=== PATIENT | female | born 1995 | race Caucasian/White ===

== ENCOUNTER 2022-09-07 09:42 | Emergency (ER) | payer MEDICAID, SELFPAY ==
[2022-09-07 09:51] VITALS: BP 129/83; PULSE 109; RESP 18; TEMP 36.8; O2SAT 98
--- NOTE | 2022-09-07 10:07 | W.ED.GENAD ---
Discharge Plan Disposition Patient Disposition: Home Condition: Stable Discharge Details Clinical Impression: Prescription refill Primary Care Provider: None,None ED Provider: Margarita Jefferson Home Meds and New Rx's Prescriptions: New escitalopram oxalate 20 mg tablet 20 mg PO DAILY Qty: 30 0RF Rx Instructions: Take one tablet daily No Action escitalopram oxalate 20 mg Tablet 20 mg PO DAILY Discharge Instructions Instructions: Escitalopram (By mouth) Additional Instructions: A prescription was sent to the pharmacy on file here [facility] in [facility]. At this time you have declined assistance with establishing PCP in this area. You may take clotrimazole or Lotrimin which is an idko-ghd-rmklrza antifungal as needed as directed for your mouth lesions. Follow up with primary care provider as needed. Return to ED sooner if any worsening or concerns. Increase oral fluids. Discharge Data Discharge Date/Time-TO BE ENTERED AT DEPARTURE: 09/07/22 10:21 Medical Decision Making 19-year-old female here for prescription refill of escitalopram. She reports she does not have a PCP here in the area she is visiting from [place]. She ran out of her medication yesterday. Prescription refilled. Prescription was sent to the pharmacy on file. HPI General Mode of arrival: ambulatory. Date/Time Provider Initiated Documentation: 09/07/22 09:58. Limitations to Documentation: no limitations. Information obtained by: patient, RN notes reviewed and old records reviewed. HPI Narrative: 27-year-old female presents to the ER with request for prescription refill. Patient is traveling from [place] staying with her parents and does not have a local PCP here she ran out of escitalopram 20 mg yesterday. She reports she has been on this medication for 8 years. I did offer assistance with establishing PCP in this area she declined at this time. Related Data Home Medications Medication Instructions Recorded Confirmed escitalopram oxalate 20 mg tablet 20 mg PO DAILY 09/07/22 09/07/22 escitalopram oxalate 20 mg tablet 20 mg PO DAILY #30 tabs 09/07/22 Previous Rx's Medication Instructions Recorded escitalopram oxalate 20 mg tablet 20 mg PO DAILY #30 tabs 09/07/22 Allergies Allergy/AdvReac Type Severity Reaction Status Date / Time codeine AdvReac Visual Unverified 09/07/22 09:57 Disturbances General Stated Complaint: RX Refill JACKIE: 4 Review of Systems All systems reviewed & are unremarkable except as noted in HPI and below PFSH All Active Problems (Updated 09/07/22 @ 10:14 by Margarita Jefferson NP) Prescription refill (Acute) Social History Smoking/Tobacco Use Status: Current every day Tobacco Type: e-cigarettes Smoking risk assessment performed?: Yes Alcohol Intake: never Drug use: Never Substance use type: does not use Do you feel safe at home: Yes Do you feel safe in your relationship?: Yes Exam Narrative Exam Narrative: Constitutional: Alert and oriented x3. Appears stated age. Normal body habitus. Chest: RRR, Normal S1, S2, distal pulses intact. Resp: Lungs clear to auscultation bilaterally, no wheezes, rales, or rhonchi. Musculoskeletal: Normal gait Skin: No suspicious rashes or lesions. Capillary refill less than 2 sec. Neurologic: Cranial nerves II-XII intact. Alert and oriented x 3. Motor: No deficits noted. Course Vital Signs Vital signs: Vital Signs Temperature 36.8 C 09/07/22 09:51 Pulse 109 H 09/07/22 09:51 Respiratory Rate 18 09/07/22 09:51 Blood Pressure 129/83 09/07/22 09:51 Pulse Oximetry 98 09/07/22 09:51 Temperature 36.8 C 09/07/22 09:51 Temperature Source Temporal Artery Scan 09/07/22 09:51 Pulse 109 H 09/07/22 09:51 Respiratory Rate 18 09/07/22 09:51 Respiratory Effort Non-Labored 09/07/22 09:57 Blood Pressure 129/83 09/07/22 09:51 Blood Pressure Position Sitting 09/07/22 09:51 Pulse Oximetry 98 09/07/22 09:51 Oxygen Delivery Method Room Air 09/07/22 09:51 Oxygen Flow Rate 0 09/07/22 09:51
== END 2022-09-07 10:21 | disposition home or self-care (01) ==
PROVIDERS: Emergency Provider Registered Nurse Emergency
DX: Z76.0 Encounter for issue of repeat prescription (principal)
CPT/HCPCS: 99283

== ENCOUNTER 2022-11-01 15:42 | Emergency (ER) | payer MEDICAID, SELFPAY ==
[2022-11-01 15:51] VITALS: BP 118/65; PULSE 82; RESP 18; TEMP 35.7; O2SAT 96
--- NOTE | 2022-11-01 16:37 | ED.GENADUL_ITS ---
Discharge Plan Disposition Patient Disposition: Home Condition: Good Discharge Details Clinical Impression: Medication refill, Angular cheilitis Primary Care Provider: None,None ED Provider: Deedee Zhang Home Meds and New Rx's Prescriptions: New escitalopram oxalate 20 mg tablet 20 mg PO DAILY Qty: 30 0RF hydrocortisone butyrate 0.1 % cream 1 applic topical BID Qty: 15 0RF Continued escitalopram oxalate 20 mg Tablet 20 mg PO DAILY escitalopram oxalate 20 mg tablet 20 mg PO DAILY Qty: 30 0RF Rx Instructions: Take one tablet daily Discharge Instructions Additional Instructions: Refill of your escitalopram has been sent to your pharmacy. Please take as directed. Please apply the hydrocortisone butyrate to the areas of the side of your lips twice daily for the next 1-2 weeks. Please continue with safe sex practices, discuss chronic care of your STI with your PCP. Care management will call to help arrange local PCP follow up. Please also call [facility] to discuss insurance. If you develop fevers/chills, pain or other new/worsening emergent issues please seek care urgently once again. Discharge Data Discharge Date/Time-TO BE ENTERED AT DEPARTURE: 11/01/22 16:59 Medical Decision Making Sarahi is a 27 year old female presenting today requesting refill of escitalopram, prescription for chronic vaginal herpes so that she may begin being sexually active and treatment for chronic angular cheilitis. Denies active herpes flare. New from [place] and does not have local insurance or PCP. Will be staying here. Has been given information for [employer] insurance. She has not yet f/u with start PCP. She states that her depression has been very well controlled, no thoughts of self harm. Has chronic angular chelieits for several years, has done well with topical steroids in donny past. Is currently using a scented lotion to assist as well as antifungal with no change. On exam, patient appears nontoxic. She has small areas of angular cheilitis bilaterally. No evicence of overlying cellulitis. No intra orala lesions. Appears to have good personal insight, well controlled depression without SI. Have asked care management to ensure patient gets local PCP and conctinued care. Will treat anagular cheilitis, will refill medications. Return precautions discussed. All of her questions and concerns were addressed, she is in agreement with this plan. HPI General Date/Time Provider Initiated Documentation: 11/01/22 15:43 . Limitations to Documentation: no limitations . Information obtained by: patient and RN notes reviewed . History of Present Illness 27 year old F presents to the emergency department with the chief complaint of medication refill request, angular chelitis, Patient started experiencing this unknown (has had depression for several years, well controlled with medication) Patient did receive the following treatments prior to arrival, other (escitalopram) Related Data Home Medications Medication Instructions Recorded Confirmed escitalopram oxalate 20 mg tablet 20 mg PO DAILY 09/07/22 11/01/22 escitalopram oxalate 20 mg tablet 20 mg PO DAILY #30 tabs 09/07/22 escitalopram oxalate 20 mg tablet 20 mg PO DAILY #30 tabs 11/01/22 hydrocortisone butyrate 0.1 % 1 applic topical BID #15 grams 11/01/22 topical cream Previous Rx's Medication Instructions Recorded escitalopram oxalate 20 mg tablet 20 mg PO DAILY #30 tabs 09/07/22 escitalopram oxalate 20 mg tablet 20 mg PO DAILY #30 tabs 11/01/22 hydrocortisone butyrate 0.1 % 1 applic topical BID #15 grams 11/01/22 topical cream Allergies Allergy/AdvReac Type Severity Reaction Status Date / Time codeine AdvReac Visual Unverified 11/01/22 15:55 Disturbances General Stated Complaint: RX Refill JACKIE: 4 Review of Systems Constitutional Constitutional: Reports as per HPI, Denies chills and Denies fever(s) Cardiovascular Cardiovascular: Reports as per HPI, Denies chest pain and Denies dyspnea Respiratory Respiratory: Reports as per HPI, Denies cough and Denies dyspnea Psychiatric Psychiatric: Reports as per HPI (feels that depression is well conrolled), Denies homicidal ideation and Denies suicidal ideation PFSH All Active Problems (Updated 11/01/22 @ 16:41 by CYN Leo) Medication refill (Acute) Angular cheilitis (Acute) Social History Smoking/Tobacco Use Status: Current every day Tobacco Type: e-cigarettes Smoking risk assessment performed?: Yes Alcohol Intake: never Drug use: Never Substance use type: does not use Do you feel safe at home: Yes Do you feel safe in your relationship?: Yes Exam Const General: cooperative, healthy appearing, comfortable and no acute distress Nutritional Appearance: average body habitus and well nourished Orientation: alert and awake HENMT Face images: 1. 2. small erythematous areas with cracking. Moist area. No pain with palpation. No intra oral lesions. No surrounding erythema, no pain with palpation, no discharrge. Resp Effort & Inspection: normal respiratory effort, able to speak in complete sentences and no respiratory distress Cardio Rate: regular rate Rhythm: regular rhythm Skin General skin exam: no rashes or lesions noted Neuro General: patient alert and patient awake Cognition: normal cognition Speech: speech normal Gait: normal gait Psych Appearance: grossly normal and well kempt Mental Status: mental status grossly normal Speech and Movement: speech and movement normal Course Vital Signs Vital signs: Vital Signs Temperature 35.7 C L 11/01/22 15:51 Pulse 82 11/01/22 15:51 Respiratory Rate 18 11/01/22 15:51 Blood Pressure 118/65 11/01/22 15:51 Pulse Oximetry 96 11/01/22 15:51 Temperature 35.7 C L 11/01/22 15:51 Temperature Source Tympanic 11/01/22 15:51 Pulse 82 11/01/22 15:51 Respiratory Rate 18 11/01/22 15:51 Respiratory Effort Normal, Non-Labored 11/01/22 15:55 Blood Pressure 118/65 11/01/22 15:51 Blood Pressure Position Sitting 11/01/22 15:51 Pulse Oximetry 96 11/01/22 15:51 Oxygen Delivery Method Room Air 11/01/22 15:51 Oxygen Flow Rate 0 11/01/22 15:51
--- NOTE | 2022-11-02 12:08 | PDOC.ERCMACT ---
- If Service Date Differs Date of service: 11/02/22 Time of Service: 12:08 Care Management Activity Note Nelda is seen in the ED for a refill of her medication. At the request of ED provider, SURYA coordinates a rreferral to Gisela Estrada aprn, of [facility], tele-doc, to assist Nelda in obtaining a follow up appointment and in establishing care with a PCP. A referral is also made to [facility] for assistance with obtaining health insurance.
== END 2022-11-01 16:59 | disposition home or self-care (01) ==
PROVIDERS: Emergency Provider Physician Assistant
DX: K13.0 Diseases of lips (principal); Z76.0 Encounter for issue of repeat prescription
CPT/HCPCS: 99283

== ENCOUNTER 2023-01-05 10:54 | Outpatient (REF) | payer MEDICAID, SELFPAY ==
--- NOTE | 2023-01-05 09:30 | PAPFT_PTH ---
PATIENT: Nelda Rousseau LOC: [facility]#:[id number] AGE/SX: 27/F ROOM: RE01/05/[address]: Mirtha Cuevas : 1995 BED: DIS: 01/05/2023 SPEC #: [id number] RECD: 01/05/23 17:54 STATUS: ROEL FUENTES #: [id number] LITO: 01/05/23 09:[address]: Mirtha Cuevas DEPT: [facility] Cytology RECD BY: Crystal Corbett ENTERED: 01/05/23 17:54 SP TYPE: PAPFT NEIL DR: None Tissues: 1 - CX/ENDOCX FOR PAP SMEARS Procedures: PAP THIN PREP/UVM Screening HPV DNA PROBE Comments: [id number] (CHLAMYDIA/GC)
[2023-01-05 14:41] LABS: HCT 51.1 % (36.0-46.0); HGB 16.9 g/dL (11.2-15.7); MCH 29.9 pg (27.0-33.0); MCHC 33.1 % (32.0-36.0); MCV 90 fL (80-95); MPV 10.1 fL (8.0-11.0); Platelet Count 262 10^3/uL (130-400); RBC 5.65 10^6/uL (3.93-5.22); RDW 13.3 % (11.7-14.6); WBC 6.45 10^3/uL (4.4-10.8)
[2023-01-05 15:41] LABS: ALT 52 U/L (14-59); AST 23 U/L (15-37); Albumin 4.5 g/dL (3.4-5.0); Alkaline Phosphatase 82 U/L (46-116); Anion Gap 8.4 mmol/L (3-11); BUN 17 mg/dL (7-18); Bilirubin, Total 0.3 mg/dL (0.2-1.0); CO2 28.6 mmol/L (21.0-32.0); CREATININE 0.8 mg/dL (0.55-1.02); Calcium 9.8 mg/dL (8.5-10.1); Calculated LDL 93 mg/dL (<100); Chloride 105 mmol/L (98-107); Cholesterol 183 mg/dL (<200); Estimated GFR 102.86 (mL/min/1.73m2); Glucose 88 mg/dL (74-106); HDL Cholesterol 83 mg/dL (40-60); Magnesium 2.2 mg/dL (1.8-2.4); Potassium 4.3 mmol/L (3.5-5.1); Sodium 142 mmol/L (136-145); TSH (W/Ref FT4) 2.45 uIU/mL (0.36-3.74); Total Protein 7.8 g/dL (6.4-8.2); Triglyceride 39 mg/dL (<150)
[2023-01-05 16:13] LABS: Vitamin D 25 Total 33.8 ng/mL (30-100)
[2023-01-05 22:35] LABS: Estradiol 26 pg/mL (See Note)
[2023-01-05 23:13] LABS: LH 7.5 mIU/mL (See Note)
[2023-01-05 23:15] LABS: FSH 9.2 mIU/mL (See Note)
[2023-01-06 10:42] LABS: Hepatitis C Ab w Rflx HCV PCR Negative (Negative)
[2023-01-06 10:48] LABS: HIV-1/2 Ag & Ab Screen Negative (Negative)
[2023-01-13 12:41] LABS: Testosterone, Free 1.04 ng/dL (<0.13-1.06); Testosterone, Total 21 ng/dL (8-60)
[2023-01-13 13:45] LABS: Chlamydia Result Negative (Negative); GC Result Negative (Negative)
== END 2023-01-05 10:55 | disposition home or self-care (01) ==
LOC: NCHCN 10:54
PROVIDERS: Visit Provider Family Medicine
DX: Z12.4 Encounter for screening for malignant neoplasm of cervix; Z86.59 Personal history of other mental and behavioral disorders; R53.83 Other fatigue; Z11.51 Encounter for screening for human papillomavirus (HPV); B97.7 Papillomavirus as the cause of diseases classified elsewhere
CPT/HCPCS: 80053; 80061; 82306; 84402; 84403; 85027; 86803; 87389; 87491; 87591; 88142; 82670; 83001; 83002; 83735; 84443; 87624

== ENCOUNTER 2023-02-16 14:27 | Outpatient (REF) | payer MEDICAID, SELFPAY ==
[2023-02-16 15:13] LABS: HCT 43.5 % (36.0-46.0); HGB 14.3 g/dL (11.2-15.7); MCH 30.2 pg (27.0-33.0); MCHC 32.9 % (32.0-36.0); MCV 92 fL (80-95); Platelet Count 315 10^3/uL (130-400); RBC 4.73 10^6/uL (3.93-5.22); RDW 12.9 % (11.7-14.6); RDW-SD 43.9 fL; WBC 11.28 10^3/uL (4.4-10.8)
== END 2023-02-16 14:28 | disposition home or self-care (01) ==
LOC: NCHCN 14:27
PROVIDERS: Visit Provider Family Medicine
DX: D75.1 Secondary polycythemia (principal); R53.83 Other fatigue
CPT/HCPCS: 85027

== ENCOUNTER 2023-02-17 17:21 | Outpatient (REF) | payer MEDICAID, SELFPAY ==
--- NOTE | 2023-02-17 15:20 | ENDO_PTH ---
PATIENT: Nelda Rousseau LOC: N U#:[id number] AGE/SX: 27/F ROOM: RE02/17/[address]: Eula Lay DO : 1995 BED: DIS: 02/17/2023 SPEC #: [id number] RECD: 02/17/23 17:26 STATUS: ROEL REQ #: [id number] LITO: 02/17/23 15:[address]: Eula Lay DEPT: Surgical Specimen RECD BY: Crystal Corbett ENTERED: 02/17/23 17:27 SP TYPE: Endo OTHR DR: Unknown,Unknown Tissues: 1 - ENDOCERVICAL BX/CURRETTE Procedures: GROSS AND MICRO LEVEL 4 Comments: [id number]
[2023-02-19 14:13] LABS: Chlamydia Result Negative (Negative); GC Result Negative (Negative)
== END 2023-02-17 17:22 | disposition home or self-care (01) ==
LOC: LBN 17:21
PROVIDERS: Visit Provider Obstetrics & Gynecology
DX: N89.8 Other specified noninflammatory disorders of vagina; Z11.3 Encounter for screening for infections with a predominantly sexual mode of transmission; N88.8 Other specified noninflammatory disorders of cervix uteri; R87.610 Atypical squamous cells of undetermined significance on cytologic smear of cervix (ASC-US); R87.810 Cervical high risk human papillomavirus (HPV) DNA test positive
CPT/HCPCS: 87491; 87591; 88305; 87480; 87510; 87660

== ENCOUNTER 2023-03-02 13:21 | Outpatient (REF) | payer MEDICAID, SELFPAY | END 2023-03-02 13:22 | disposition home or self-care (01) | LOC: LBN 13:21 | PROVIDERS: Visit Provider Obstetrics & Gynecology | DX: R30.0 Dysuria (principal) | CPT/HCPCS: 87086 ==

== ENCOUNTER 2023-04-14 14:44 | Outpatient (REF) | payer MEDICAID, SELFPAY ==
[2023-04-15 13:19] LABS: Chlamydia Result Negative (Negative); GC Result Negative (Negative)
== END 2023-04-14 14:45 | disposition home or self-care (01) ==
LOC: NCHCN 14:44
PROVIDERS: Visit Provider Family Medicine
DX: R87.610 Atypical squamous cells of undetermined significance on cytologic smear of cervix (ASC-US) (principal)
CPT/HCPCS: 87491; 87591

== ENCOUNTER 2023-09-20 15:01 | Emergency (ER) | payer MEDICAID, SELFPAY ==
[2023-09-20 15:03] VITALS: BP 117/67; PULSE 90; RESP 18; TEMP 36.3; O2SAT 99
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
== END 2023-09-20 15:45 | disposition home or self-care (01) ==
PROVIDERS: Emergency Provider Emergency Medicine
DX: S06.0XAA Concussion with loss of consciousness status unknown, initial encounter (principal); S13.4XXA Sprain of ligaments of cervical spine, initial encounter; V43.02XA Car driver injured in collision with other type car in nontraffic accident, initial encounter
CPT/HCPCS: 99281; 99282